=== PATIENT | female | born 1950 ===

== ENCOUNTER 2021-01-11 09:40 | Outpatient (CLI) | payer OTHER | END 2021-01-11 09:46 | disposition home or self-care (01) | LOC: NUCLEAR 09:40 | PROVIDERS: ATTEND Internal Medicine | DX: I70.213 Atherosclerosis of native arteries of extremities with intermittent claudication, bilateral legs (principal) ==

== ENCOUNTER 2021-01-12 09:36 | Outpatient (CLI) | payer OTHER | END 2021-01-12 09:40 | disposition home or self-care (01) | LOC: NUCLEAR 09:36 | PROVIDERS: ATTEND Internal Medicine | DX: I87.2 Venous insufficiency (chronic) (peripheral) (principal) ==